=== PATIENT | female | born 1965 | race Caucasian/White ===

== ENCOUNTER → 2021-03-14 | Outpatient (CLI) | payer BC ==
[2021-03-14 08:58] LABS: HEMOGLOBIN 14.4 gm/dl (12.3-15.3); RED BLOOD COUNT 5.06 M/UL (4.00-5.10); WHITE BLOOD COUNT 5.9 K/UL (4.5-11.0)
[2021-03-14 09:33] LABS: BUN/CREATININE RATIO 13 (0-10)
== END ==
LOC: LAB 08:27
PROVIDERS: Nurse Practitioner Family
DX: E04.9 Nontoxic goiter, unspecified (principal); Z13.1 Encounter for screening for diabetes mellitus; I10 Essential (primary) hypertension
CPT/HCPCS: 36415; 80048; 80061; 83036; 84439; 84443; 85027

== ENCOUNTER → 2021-12-18 | Outpatient (CLI) | payer BC ==
[2021-12-18 08:47] LABS: BUN/CREATININE RATIO 12 (0-10)
== END ==
LOC: LAB 07:56
PROVIDERS: Nurse Practitioner Family
DX: E78.00 Pure hypercholesterolemia, unspecified (principal)
CPT/HCPCS: 36415; 80053; 80061